=== PATIENT | male | born 1945 | race Caucasian/White ===

== ENCOUNTER 2017-11-09 09:26 | Emergency (ER) | payer MEDICARE ==
[2017-11-09 09:34] VITALS: RESP 18; TEMP 97.8
--- NOTE | 2017-11-09 09:55 | ED ---
General Adult HPI - General Chief complaint: Upper Respiratory Infection Stated complaint: Cough Time Seen by Provider: 11/09/17 09:48 Source: patient, RN notes reviewed Mode of arrival: ambulatory Limitations: no limitations - History of Present Illness Initial comments: Patient 71-year-old male who presents emergency room today with chief complaint of cough congestion over the last 2 days. Patient does admit to a deep cough. He admits to some bodyaches. Admits chills. He does admit to rhinorrhea and drainage with a sore throat. Patient denies any other complaints or symptoms currently. Patient denies any recent shortness of breath, chest pain, back pain , abdominal pain, nausea or vomiting, headaches or visual changes, or any other complaints. - Related Data Home Medications Medication Instructions Recorded Confirmed Bisoprolol-Hctz 10-6.25 mg [Ziac 1 tab PO DAILY 01/01/16 11/09/17 10-6.25 MG] Acetaminophen Tab [Tylenol Tab] 1,000 mg PO Q6HR PRN 11/09/17 11/09/17 Montelukast [Singulair] 10 mg PO HS 11/09/17 11/09/17 Previous Rx's Medication Instructions Recorded Allopurinol [Zyloprim] 300 mg PO DAILY #0 01/08/16 Simvastatin [Zocor] 20 mg PO HS #0 01/08/16 Oseltamivir [Tamiflu] 75 mg PO Q12HR 5 Days cap 11/09/17 Allergies Allergy/AdvReac Type Severity Reaction Status Date / Time aspirin Allergy Swelling Verified 11/09/17 10:15 Sulfa (Sulfonamide Allergy Swelling Verified 11/09/17 10:15 Antibiotics) Review of Systems ROS Statement: Those systems with pertinent positive or pertinent negative responses have been documented in the HPI. ROS Other: All systems not noted in ROS Statement are negative. Past Medical History Past Medical History: Hyperlipidemia, Hypertension, Prostate Disorder Additional Past Medical History / Comment(s): gout History of Any Multi-Drug Resistant Organisms: None Reported Past Surgical History: Appendectomy, Orthopedic Surgery, Prostate Surgery Additional Past Surgical History / Comment(s): partial right knee replacement, broken jaw sx, prostate removal Past Anesthesia/Blood Transfusion Reactions: No Reported Reaction Past Psychological History: No Psychological Hx Reported Smoking Status: Never smoker Past Alcohol Use History: None Reported Past Drug Use History: None Reported - Past Family History Father Family Medical History: Congestive Heart Failure (CHF), Coronary Artery Disease (CAD), Hypertension Mother Family Medical History: Congestive Heart Failure (CHF) Brother(s) Family Medical History: Cancer (Rectal) Sister(s) Family Medical History: No Reported History Daughter(s) Family Medical History: Liver Disease (Crohn's) General Exam - General Exam Comments Initial Comments: General: The patient is awake and alert, in no distress, and does not appear acutely ill. Eye: Pupils are equal, round and reactive to light, extra-ocular movements are intact. No nystagmus. There is normal conjunctiva bilaterally. No signs of icterus. Ears, nose, mouth and throat: There are moist mucous membranes and no oral lesions. Neck: The neck is supple, there is no tenderness or JVD. Cardiovascular: There is a regular rate and rhythm. No murmur, rub or gallop is appreciated. Respiratory: Lungs are clear to auscultation, respirations are non-labored, breath sounds are equal. No wheezes, stridor, rales, or rhonchi. Musculoskeletal: Normal ROM, no tenderness. Strength 5/5. Sensation intact. Pulses equal bilaterally 2+. Neurological: A&O x 3. CN II-XII intact, There are no obvious motor or sensory deficits. Coordination appears grossly intact. Speech is normal. Skin: Skin is warm and dry and no rashes or lesions are noted. Psychiatric: Cooperative, appropriate mood & affect, normal judgment. Limitations: no limitations Course Vital Signs 11/09/17 09:32 Temperature 97.8 F Pulse Rate 70 Respiratory 18 Rate Blood Pressure 107/64 O2 Sat by Pulse 93 L Oximetry Medical Decision Making - Medical Decision Making Patient's chest x-ray is negative for any sign of pneumonia. Patient's influenza A positive. Will be started on Tamiflu the symptoms started just 2 days ago. Patient advised to use Tylenol Motrin as needed for aches pains and fevers. Advised follow-up family doctor return here to the emergency room for any other concerns. Case discussed with physician Dr. Carpenter. - Lab Data Lab Results 11/09/17 Range/Units 09:58 Influenza Type A RNA Detected H (Not Detectd) Influenza Type B (PCR) Not Detected (Not Detectd) Disposition Clinical Impression: Influenza A Disposition: HOME SELF-CARE Condition: Good Instructions: Influenza (ED) Additional Instructions: Please use medication as discussed. Please follow-up with family doctor in the next 2 days of symptoms have not improved. Please return to emergency room if the symptoms increase or worsen or for any other concerns. Prescriptions: Oseltamivir [Tamiflu] 75 mg PO Q12HR 5 Days cap Referrals: Kelli Eaton DO [Primary Care Provider] - 1-2 days Time of Disposition: 10:45
--- NOTE | 2017-11-09 10:20 | XR ---
EXAMINATION TYPE: XR chest 2V DATE OF EXAM: 11/09/2017 HISTORY: cough. REFERENCE: Previous study dated 01/03/2016. FINDINGS: The lungs appear clear. Pleural spaces are clear. Heart size is upper limits of normal. IMPRESSION: BORDERLINE CARDIOMEGALY.
[2017-11-09 11:02] VITALS: BP 117/66; PULSE 68
== END 2017-11-09 11:01 | disposition home or self-care (01) ==
LOC: EC 09:26
DX: J10.1 Influenza due to other identified influenza virus with other respiratory manifestations (principal); I10 Essential (primary) hypertension; Z79.899 Other long term (current) drug therapy; Z88.2 Allergy status to sulfonamides; Z88.6 Allergy status to analgesic agent
CPT/HCPCS: 71046; 87502; 99283

== ENCOUNTER → 2017-11-18 | Outpatient (CLI) | payer MEDICARE ==
--- NOTE | 2017-11-19 12:00 | ECHOF ---
Referral Reason:I15.7 CARDIOMEGALY MEASUREMENTS -------- HEIGHT: 177.8 cm WEIGHT: 99.8 kg BP: IVSd: 1.5 cm (0.6 - 1.1) LVIDd: 4.2 cm (3.9 - 5.3) LVPWd: 1.4 cm (0.6 - 1.1) IVSs: 1.8 cm LVIDs: 3.0 cm LVPWs: 1.8 cm LAESV Index (A-L): 30.51 ml/m Ao Diam: 3.5 cm (2.0 - 3.7) AV Cusp: 2.0 cm (1.5 - 2.6) LA Diam: 3.9 cm (2.7 - 3.8) MV EXCURSION: 19.783 mm (> 18.000) MV EF SLOPE: 162 mm/s (70 - 150) EPSS: 1.0 cm MV E Minesh: 0.56 m/s MV DecT: 289 ms MV A Minesh: 0.35 m/s MV E/A Ratio: 1.58 AR PHT: 516 ms FINDINGS -------- Sinus rhythm. This was a technically adequate study. The left ventricular size is normal. There is moderate concentric left ventricular hypertrophy. O verall left ventricular systolic function is low-normal with, an EF between 50 - 55 %. The right ventricle is normal in size and function. LA is midly dilated 29-33ml/m2. RA appears enlarged. Aortic valve is trileaflet and is mildly thickened. There is wdai-[id number] aortic regurgitation. The aortic pressure half-time by doppler is 516ms. There is no evidence of aortic stenosis. The mitral valve is normal. There is trace to mild mitral regurgitation. Trace tricuspid regurgitation present. Right ventricular systolic pressure is normal at < 35 mmHg. There is no evidence of pulmonary hypertension. The pulmonic valve was not well visualized. The aortic root size is normal. Normal inferior vena cava with normal inspiratory collapse consistent with estimated right atrial pre ssure of 5 mmHg. The pericardium is normal. There is no pericardial effusion. CONCLUSIONS -------- 1. Sinus rhythm. 2. This was a technically adequate study. 3. The left ventricular size is normal. 4. There is moderate concentric left ventricular hypertrophy. 5. LA is midly dilated 29-33ml/m2. 6. RA appears enlarged. 7. Aortic valve is trileaflet and is mildly thickened. 8. There is nhjz-rf-zfnxvxqi aortic regurgitation. 9. The aortic pressure half-time by doppler is 516ms. 10. There is trace to mild mitral regurgitation. 11. Trace tricuspid regurgitation present. 12. Right ventricular systolic pressure is normal at < 35 mmHg. 13. There is no evidence of pulmonary hypertension. 14. The pulmonic valve was not well visualized. 15. The aortic root size is normal. 16. There is no pericardial effusion. CHIEF BANK EXAMINER: [place] RDCS
== END | disposition home or self-care (01) ==
LOC: RADECHMAIN 15:34
PROVIDERS: ATTEND Family Medicine
DX: I08.3 Combined rheumatic disorders of mitral, aortic and tricuspid valves (principal)
CPT/HCPCS: 93306

== ENCOUNTER → 2019-12-23 | Outpatient (CLI) | payer MEDICARE, OTHER ==
--- NOTE | 2019-12-23 17:27 | ECHOS ---
STRESS ECHOCARDIOGRAM LUMASON: @@ Vial INDICATIONS: Other forms of dyspnea. MEDICATIONS: Bisoprolol, Allopurinol, montelukast. BASELINE HEART RATE: 63 BASELINE BLOOD PRESSURE: 128/70 MAXIMUM HEART RATE: 102 MAXIMUM BLOOD PRESSURE: 168/58 85% MPHR: 126 100% MPHR: 148 METS: 10.3 MAXIMUM STAGE REACHED: III TOTAL EXERCISE TIME: 8:55 CLINICAL INFORMATION: Ga Robin is a 74-year-old male who underwent a dobutamine stress echo for evaluation of shortness of breath on exertion. Baseline heart rate 63 beats per minute. Baseline blood pressure 128/70 mmHg. Baseline 12-lead ECG shows sinus rhythm with normal ST segments. Patient exercised on a Carlos protocol for 8 minutes 55 seconds, achieving a peak heart rate of only 102 beats per minute. He had taken his dose of bisoprolol. He was visibly short of breath by peak exercise. Normal blood pressure response. Peak heart rate 102 beats per minute. Occasional PVCs were noted. No ST-segment abnormalities noted. Baseline 2D echo images showed normal LV size and systolic function without segmental wall motion abnormalities. At peak exercise, there was excellent augmentation of overall LV contractility without development of any wall motion abnormalities. At recovery, regional global LV systolic function remained normal. IMPRESSION: Good exercise capacity, but patient was visibly short of breath at peak exercise. No ECG or echocardiographic evidence for ischemia. Occasional PVCs noted and blunted heart rate response to exercise, patient on bisoprolol. BAYRON / CONI: [id number] /
== END | disposition home or self-care (01) ==
LOC: RADNMMAIN 08:53
PROVIDERS: ATTEND Family Medicine
DX: I49.3 Ventricular premature depolarization (principal)
CPT/HCPCS: 93351

== ENCOUNTER 2020-09-24 03:23 | Emergency (ER) | payer MEDICARE, OTHER ==
--- NOTE | 2020-09-24 04:44 | XR ---
EXAM: XR Abdomen, 1 View CLINICAL HISTORY: abdominal pain TECHNIQUE: Frontal supine view of the abdomen/pelvis. COMPARISON: No relevant prior studies available. FINDINGS: Intraperitoneal space: No free air. Gastrointestinal tract: Large amount of stool in the transverse colon. Bones/joints: Kyphoplasty changes are present in the L4 vertebral body. Soft tissues: Postsurgical changes are present in the pelvis. IMPRESSION: Large amount of stool in the transverse colon.
--- NOTE | 2020-09-24 05:52 | ED ---
Abdominal Pain HPI - General Chief Complaint: Abdominal Pain Stated Complaint: abd pain,constipation Time Seen by Provider: 09/24/20 03:51 Source: patient Mode of arrival: ambulatory Limitations: no limitations - History of Present Illness MD Complaint: abdominal pain Onset/Timin -: days(s) Location: diffuse Radiation: none Migration to: no migration Severity: mild Quality: cramping, fullness Consistency: intermittent Improves With: nothing Worsens With: nothing Associated Symptoms: constipation - Related Data Home Medications Medication Instructions Recorded Confirmed Bisoprolol-Hctz 10-6.25 mg [Ziac 1 tab PO DAILY 01/01/16 11/09/17 10-6.25 MG] Acetaminophen Tab [Tylenol Tab] 1,000 mg PO Q6HR PRN 11/09/17 11/09/17 Montelukast [Singulair] 10 mg PO HS 11/09/17 11/09/17 Previous Rx's Medication Instructions Recorded Simvastatin [Zocor] 20 mg PO HS #0 01/08/16 allopurinoL [Zyloprim] 300 mg PO DAILY #0 01/08/16 Oseltamivir [Tamiflu] 75 mg PO Q12HR 5 Days cap 11/09/17 Allergies Allergy/AdvReac Type Severity Reaction Status Date / Time aspirin Allergy Swelling Verified 09/24/20 03:35 Sulfa (Sulfonamide Allergy Swelling Verified 09/24/20 03:35 Antibiotics) Review of Systems ROS Statement: Those systems with pertinent positive or pertinent negative responses have been documented in the HPI. ROS Other: All systems not noted in ROS Statement are negative. Constitutional: Denies: fever, chills Respiratory: Denies: cough, dyspnea Cardiovascular: Denies: chest pain, palpitations, edema Gastrointestinal: Reports: abdominal pain, constipation. Denies: nausea, vomiti ng, diarrhea, hematemesis, melena, hematochezia Genitourinary: Denies: dysuria, hematuria Musculoskeletal: Denies: back pain Skin: Denies: rash Neurological: Denies: headache, weakness Past Medical History Past Medical History: Hyperlipidemia, Hypertension, Prostate Disorder Additional Past Medical History / Comment(s): gout History of Any Multi-Drug Resistant Organisms: None Reported Past Surgical History: Appendectomy, Orthopedic Surgery, Prostate Surgery Additional Past Surgical History / Comment(s): partial right knee replacement, broken jaw sx, prostate removal Past Anesthesia/Blood Transfusion Reactions: No Reported Reaction Past Psychological History: No Psychological Hx Reported Smoking Status: Never smoker Past Alcohol Use History: None Reported Past Drug Use History: None Reported - Past Family History Father Family Medical History: Congestive Heart Failure (CHF), Coronary Artery Disease (CAD), Hypertension Mother Family Medical History: Congestive Heart Failure (CHF) Brother(s) Family Medical History: Cancer (Rectal) Sister(s) Family Medical History: No Reported History Daughter(s) Family Medical History: Liver Disease (Crohn's) General Exam Limitations: no limitations General appearance: alert, in no apparent distress Head exam: Present: atraumatic, normocephalic Eye exam: Present: normal appearance Respiratory exam: Present: normal lung sounds bilaterally. Absent: respiratory distress, wheezes, rales, rhonchi, stridor Cardiovascular Exam: Present: regular rate, normal rhythm, normal heart sounds. Absent: systolic murmur, diastolic murmur, rubs, gallop GI/Abdominal exam: Present: soft, normal bowel sounds. Absent: distended, tenderness, guarding, rebound, rigid, mass, pulsatile mass, hernia Extremities exam: Present: normal inspection, normal capillary refill. Absent: pedal edema, calf tenderness Back exam: Present: normal inspection. Absent: CVA tenderness (R), CVA tenderness (L) Neurological exam: Present: alert Skin exam: Present: warm, dry, intact, normal color. Absent: rash Course Vital Signs 09/24/20 09/24/20 03:31 06:16 Temperature 97.2 F L 98 F Pulse Rate 71 68 Respiratory 18 17 Rate Blood Pressure 143/101 140/87 O2 Sat by Pulse 96 99 Oximetry Disposition Clinical Impression: Constipation Disposition: HOME SELF-CARE Condition: Good Instructions (If sedation given, give patient instructions): Constipation (ED) Is patient prescribed a controlled substance at d/c from ED?: No Referrals: Kelli Eaton DO [Primary Care Provider] - 1-2 days
[2020-09-24] MEDS ORDERED: PEG 3350-NA SULF,BICARB,CL/KCL 4,000 ML BOTTLE PO ONE (06:00)
[2020-09-24 06:18] VITALS: BP 140/87; PULSE 68; RESP 17; TEMP 98
== END 2020-09-24 06:18 | disposition home or self-care (01) ==
LOC: EC 03:23
DX: K59.00 Constipation, unspecified (principal); I10 Essential (primary) hypertension; Z88.6 Allergy status to analgesic agent; Z88.2 Allergy status to sulfonamides; Z79.899 Other long term (current) drug therapy; Z96.651 Presence of right artificial knee joint
CPT/HCPCS: 74018; 99284

== ENCOUNTER 2021-07-13 13:30 | Observation (INO) | payer MEDICARE, OTHER ==
[2021-07-13 14:27] LABS: Basophils % (A) 0 %; Eosinophils # (A) 0.1 k/uL (0-0.7); Eosinophils % (A) 2 %; HCT 43.8 % (39.0-53.0); HGB 14.7 gm/dL (13.0-17.5); Lymphocytes # (A) 1.7 k/uL (1.0-4.8); Lymphocytes % (A) 23 %; MCH 32.7 pg (25.0-35.0); MCHC 33.6 g/dL (31.0-37.0); MCV 97.5 fL (80.0-100.0); Monocytes # (A) 0.5 k/uL (0-1.0); Monocytes % (A) 6 %; Neutrophils # (A) 4.9 k/uL (1.3-7.7); Neutrophils % (A) 66 %; Platelet Count 247 k/uL (150-450); RBC 4.49 m/uL (4.30-5.90); RDW 13.3 % (11.5-15.5); WBC 7.4 k/uL (3.8-10.6)
--- NOTE | 2021-07-13 14:36 | ED ---
Chest Pain HPI - General Chief Complaint: Chest Pain Stated Complaint: SOB,Left arm pain,Fatigue Time Seen by Provider: 07/13/21 13:48 Source: patient, family, RN notes reviewed Mode of arrival: wheelchair Limitations: no limitations - History of Present Illness Initial Comments: 75-year-old male with no prior history of heart or lung disease he is aware of he does have a history of hypertension and hyperlipidemia who presents with complaints of intermittent episodes of retrosternal chest pressure in the left side 1-2/10 severity when it comes on some radiation to the left arm he's been having exertional dyspnea recently worse yesterday than today he's had some sweats. Cough fevers chills or other symptoms reported. At this time he is asymptomatic MD Complaint: chest pain, other - Related Data Home Medications Medication Instructions Recorded Confirmed Bisoprolol-Hctz 10-6.25 mg [Ziac 1 tab PO DAILY 01/01/16 07/13/21 10-6.25 MG] ALPRAZolam [Xanax] 0.25 mg PO TID PRN 07/13/21 07/13/21 Famotidine [Pepcid] 40 mg PO AC-SUPPER 07/13/21 07/13/21 Sertraline [Zoloft] 50 mg PO DAILY 07/13/21 07/13/21 Previous Rx's Medication Instructions Recorded allopurinoL [Zyloprim] 300 mg PO DAILY #0 01/08/16 Allergies Allergy/AdvReac Type Severity Reaction Status Date / Time aspirin Allergy Swelling Verified 07/13/21 15:09 Sulfa (Sulfonamide Allergy Swelling Verified 07/13/21 15:09 Antibiotics) Maqwsov-[id number]-[id number] Reductase AdvReac leg cramps Verified 07/13/21 15:09 Inhibitor Review of Systems ROS Statement: Those systems with pertinent positive or pertinent negative responses have been documented in the HPI. ROS Other: All systems not noted in ROS Statement are negative. EKG Findings - EKG Results: EKG: interpreted by ES, sinus rhythm (Sinus bradycardia rate 59. Interval 160 QRS yazidi 92 QT since QTC 412/407 to QA changes) Past Medical History Past Medical History: Hyperlipidemia, Hypertension, Prostate Disorder Additional Past Medical History / Comment(s): gout History of Any Multi-Drug Resistant Organisms: None Reported Past Surgical History: Appendectomy, Orthopedic Surgery, Prostate Surgery Additional Past Surgical History / Comment(s): partial right knee replacement, broken jaw sx, prostate removal Past Anesthesia/Blood Transfusion Reactions: No Reported Reaction Past Psychological History: No Psychological Hx Reported Smoking Status: Never smoker Past Alcohol Use History: None Reported Past Drug Use History: None Reported - Past Family History Father Family Medical History: Congestive Heart Failure (CHF), Coronary Artery Disease (CAD), Hypertension Mother Family Medical History: Congestive Heart Failure (CHF) Brother(s) Family Medical History: Cancer (Rectal) Sister(s) Family Medical History: No Reported History Daughter(s) Family Medical History: Liver Disease (Crohn's) General Exam - General Exam Comments Initial Comments: This is a well-developed well-nourished awake alert oriented 3 male Limitations: no limitations General appearance: alert, in no apparent distress Head exam: Present: atraumatic, normocephalic, normal inspection Eye exam: Present: normal appearance, PERRL, EOMI. Absent: scleral icterus, conjunctival injection, periorbital swelling ENT exam: Present: normal exam, mucous membranes moist Neck exam: Present: normal inspection, full ROM, other (Genitourinary bruits). Absent: tenderness, meningismus, lymphadenopathy Respiratory exam: Present: normal lung sounds bilaterally. Absent: respiratory distress, wheezes, rales, rhonchi, stridor Cardiovascular Exam: Present: regular rate, normal rhythm, normal heart sounds. Absent: systolic murmur, diastolic murmur, rubs, gallop, clicks GI/Abdominal exam: Present: soft, normal bowel sounds. Absent: distended, tenderness, guarding, rebound, rigid, bruit, pulsatile mass Extremities exam: Present: normal inspection, full ROM, normal capillary refill. Absent: tenderness, pedal edema, joint swelling, calf tenderness Back exam: Present: normal inspection Neurological exam: Present: alert, oriented X3, CN II-XII intact Psychiatric exam: Present: normal affect, normal mood Skin exam: Present: warm, dry, intact, normal color. Absent: rash Course Vital Signs 07/13/21 13:36 Temperature 98.2 F Pulse Rate 63 Respiratory 18 Rate Blood Pressure 140/76 O2 Sat by Pulse 96 Oximetry Chest Pain MDM - MDM Imaging reviewed no acute findings. I did discuss case with patient family as well as with Dr. Capps who did come to see the patient. Patient will be ad mitted with cardiology consultation no further symptoms at this time Disposition Clinical Impression: Unstable angina pectoris, Chest pain Disposition: ADMITTED IP TO THIS HOSP Condition: Stable Referrals: Kelli Eaton DO [Primary Care Provider] - 1-2 days
[2021-07-13 14:37] LABS: Albumin 3.9 g/dL (3.5-5.0); Calcium 9.2 mg/dL (8.4-10.2); Magnesium 1.9 mg/dL (1.6-2.3); Potassium 4.3 mmol/L (3.5-5.1); Total Bilirubin 0.7 mg/dL (0.2-1.3); Total Protein 6.8 g/dL (6.3-8.2)
[2021-07-13 14:40] LABS: Partial Thromboplastin Time 24.3 sec (22.0-30.0); Prothrombin Time 10.9 sec (9.0-12.0)
--- NOTE | 2021-07-13 14:58 | XR ---
EXAMINATION TYPE: XR chest 2V DATE OF EXAM: 07/13/2021 COMPARISON: 11/09/2017 INDICATION: Chest pain TECHNIQUE: Frontal and lateral views of the chest are obtained. FINDINGS: The heart size is normal. The pulmonary vasculature is normal. The lungs are clear. IMPRESSION: 1. No acute pulmonary process.
[2021-07-13] MEDS ORDERED: HEPARIN SODIUM 1,000 UN/ML (10ML VL) IV ONE (15:27)
[2021-07-13] MEDS ORDERED: NITROGLYCERIN SL TABS 0.4 MG TAB SUBLINGUAL PRN (15:27)
[2021-07-13] MEDS ORDERED: ALPRAZolam 0.25 MG TAB PO PRN (15:29)
[2021-07-13] MEDS: HEPARIN SOD,PORK IN 0.45% NACL 25,000 UNIT in 0.45% NACL 1 250ML.BAG IV SCH (16:20)
--- NOTE | 2021-07-13 16:21 | P.HPIM ---
History of Present Illness H&P Date: 07/13/21 Chief Complaint: Chest pain 75 years old male with past medical history of hypertension, hyperlipidemia, gout, anxiety, history of compression fractures in the back status post kyphoplasty comes in with worsening shortness of breath for the past few months associated with chest pain for the past few weeks. Patient also complains of significant weakness and shortness of breath on exertion when he even does minimal distance. He complained about his chest pain to his and decided to get an appointment with cardiology. Cardiology office recommended going to the ER due to patient's symptoms. Patient also complains of cough that has been going on for the past few months but improved with the use of Pepcid. Patient denies any history of stress test. He does complain of significant proximal thigh pain and weakness. Vitals are reviewed patient temp of 98.2 pulse 63 respiratory rate of 18 blood pressure 140/76.labs are suggestive WBC 7.4 hemoglobin 14.7 BUN 24 creatinine 1.15 glucose 116 2. 1 negative proBNP 116 AST ALT normal. EKG suggestive of sinus bradycardia and no ST or T-wave changes noted. Echocardiogram ordered troponin 3 ordered. Cardiology consult ROS Constitutional: Denies chills, Denies fever, endorses lethargic, decreased appetite and increased weakness Eyes: denies decreased vision, denies diplopia, denies discharge, denies pain Ears: deny: decreased hearing Ears, nose, mouth and throat: Denies dental pain, Denies headache, Denies nasal discharge, Denies nose pain Cardiovascular: Endorses chest pressure endorses decreased exercise tolerance, Denies edema, Denies high blood pressure, Denies irregular heart beat, Denies palpitations, Denies paroxysmal nocturnal dyspnea, Denies rapid heart beat, endorses shortness of breath Respiratory: Denies congestion, endorses cough improved with Pepcid, Denies cough with sputum, endorses dyspnea, Denies home oxygen, Denies wheezing Gastrointestinal: Denies abdominal pain, Denies change in bowel habits, Denies coffee ground emesis, Denies early satiety, Denies excessive gas, Denies heartburn, Denies hematemesis, Denies hematochezia, Denies loss of appetite, Denies nausea, Denies vomiting Genitourinary: Denies dysuria, Denies flank pain, Denies kidney stones, Denies menorrhagia, Denies urgency, Denies urinary frequency Musculoskeletal: Denies gait dysfunction, endorses limitation of motion, Denies morning stiffness, Denies muscle cramps Integumentary: Denies rash, Denies wounds, Denies brittle nails, Denies change in hair/nails, Denies darkening of skin Neurological: Denies balance difficulties, Denies change in speech, Denies double vision, Denies gait dysfunction, Denies loss of vision, Denies motor disturbance, Denies numbness, Denies paralysis, Denies paresthesias, Denies seizures Psychiatric: Denies anxiety, Denies depression Endocrine: Denies excessive sweating, Denies excessive thirst, Denies high blood sugars, Denies palpitations Hematologic/Lymphatic: Denies easy bruising, Denies lymphadenopathy Social history Nonsmoker but does have significant smoke exposure as he worked in [employer] and was exposed to passive smoking nondrinker no use of oxygen. No h istory of sleep apnea Family history Father at age of 73 from coronary artery disease Mother at the age of 83 from congestive heart failure Brother at the age of 65 from colon cancer Brother had a stroke at the age of 76 Sister has multiple medical problems including hypertension and diabetes Sr. is healthy Brother is healthy Physical exam - Constitutional General appearance: cooperative, no acute distress, obese - EENT Eyes: anicteric sclerae, PERRLA, normal appearance ENT: hearing grossly normal - Neck Neck: no lymphadenopathy, normal ROM, no other, no rigidity, no stridor, no thyromegaly - Respiratory Respiratory: bilateral: CTA, negative: diminished, dullness, rales, rhonchi - Cardiovascular Rhythm: regular Heart sounds: normal: S1, S2 Abnormal Heart Sounds: no systolic murmur, no diastolic murmur, no rub, no S3 Gallop, no S4 Gallop, no click, no other - Gastrointestinal General gastrointestinal: normal bowel sounds, soft nontender - Integumentary Integumentary: no rash - Neurologic Neurologic: CNII-XII intact - Musculoskeletal Musculoskeletal: gait normal, strength equal bilaterally - Psychiatric Psychiatric: A&O x's 3, appropriate affect Assessment and plan #1 acute substernal chest pain suggestive of cardiac etiology. Echocardiogram ordered troponin X3 3 ordered. Cardiology consulted. Continue heparin drip nothing by mouth after midnight. #2 hypertension continue bisoprolol hydrochlorothiazide by mouth daily #3 history of anxiety continue Xanax 0.25 by mouth 3 times a day continue Zoloft 50 mg daily #4 history of gout continue allopurinol 300 mg daily #5 chronic cough secondary to GERD improved with Pepcid 40 once a day #6 history of compression fractures status post kyphoplasty #7 proximal thigh pain and weakness Patient need outpatient workup including a repeat MRI to rule out degenerative disc disease versus compression disc. Would benefit from physical therapy as outpatient. Patient does continue Crestor 2 months ago due to increased pain in his thighs #8 hyperlipidemia currently off Crestor due to worsening type pain #9 DVT prophylaxis with heparin drip #10 GI prophylaxis with Pepcid 40 before meals supper #11 CODE STATUS DO NOT RESUSCITATE #12 disposition patient need 1-2 inpatient nights for stabilization. Past Medical History Past Medical History: Hyperlipidemia, Hypertension, Prostate Disorder Additional Past Medical History / Comment(s): gout History of Any Multi-Drug Resistant Organisms: None Reported Past Surgical History: Appendectomy, Orthopedic Surgery, Prostate Surgery Additional Past Surgical History / Comment(s): partial right knee replacement, broken jaw sx, prostate removal Past Anesthesia/Blood Transfusion Reactions: No Reported Reaction Past Psychological History: No Psychological Hx Reported Smoking Status: Never smoker Past Alcohol Use History: None Reported Past Drug Use History: None Reported - Past Family History Father Family Medical History: Congestive Heart Failure (CHF), Coronary Artery Disease (CAD), Hypertension Mother Family Medical History: Congestive Heart Failure (CHF) Brother(s) Family Medical History: Cancer (Rectal) Sister(s) Family Medical History: No Reported History Daughter(s) Family Medical History: Liver Disease (Crohn's) Medications and Allergies Home Medications Medication Instructions Recorded Confirmed Type Bisoprolol-Hctz 10-6.25 mg [Ziac 1 tab PO DAILY 01/01/16 07/13/21 History 10-6.25 MG] allopurinoL [Zyloprim] 300 mg PO DAILY #0 01/08/16 07/13/21 Rx ALPRAZolam [Xanax] 0.25 mg PO TID PRN 07/13/21 07/13/21 History Famotidine [Pepcid] 40 mg PO AC-SUPPER 07/13/21 07/13/21 History Sertraline [Zoloft] 50 mg PO DAILY 07/13/21 07/13/21 History Allergies Allergy/AdvReac Type Severity Reaction Status Date / Time aspirin Allergy Swelling Verified 07/13/21 15:09 Sulfa (Sulfonamide Allergy Swelling Verified 07/13/21 15:09 Antibiotics) Ugrzasc-Jyo-Srq Reductase AdvReac leg cramps Verified 07/13/21 15:09 Inhibitor Physical Exam Vitals: Vital Signs Temp Pulse Resp BP Pulse Ox 07/13/21 13:36 98.2 F 63 18 140/76 96 Intake and Output 07/13/21 07/13/21 07/13/21 06:59 14:59 22:59 Other: Weight 105.687 kg Results CBC & Chem 7: 07/13/21 14:08 07/13/21 14:08 Labs: Abnormal Lab Results - Last 24 Hours (Table) 07/13/21 Range/Units 14:08 BUN 24 H (9-20) mg/dL Glucose 116 H (74-99) mg/dL
[2021-07-13] MEDS: SODIUM CHLORIDE 0.9% 1,000 ML IV SCH (16:22)
[2021-07-13] MEDS: FAMOTIDINE 20 MG TAB PO SCH (20:09)
[2021-07-13] MEDS ORDERED: HEPARIN SODIUM 1,000 UN/ML (10ML VL) IV PRN (23:34)
[2021-07-14] MEDS: BISOPROLOL-HCTZ 10-6.25 MG 1 EACH TAB PO SCH (08:06)
[2021-07-14] MEDS: SERTRALINE 50 MG TAB PO SCH (08:07)
[2021-07-14] MEDS: allopurinoL 300 MG TAB PO SCH (08:07)
--- NOTE | 2021-07-14 11:30 | P.PN ---
Subjective Progress Note Date: 07/14/21 Principal diagnosis: chest pain and angina, hypertension, chronic cough, chronic back pain, Chief Complaint: Chest pain 75 years old male with past medical history of hypertension, hyperlipidemia, gout, anxiety, history of compression fractures in the back status post kyphoplasty comes in with worsening shortness of breath for the past few months associated with chest pain for the past few weeks. Patient also complains of significant weakness and shortness of breath on exertion when he even does minimal distance. He complained about his chest pain to his and decided to get an appointment with cardiology. Cardiology office recommended going to the ER due to patient's symptoms. Patient also complains of cough that has been going on for the past few months but improved with the use of Pepcid. Patient denies any history of stress test. He does complain of significant proximal thigh pain and weakness. Vitals are reviewed patient temp of 98.2 pulse 63 respiratory rate of 18 blood pressure 140/76.labs are suggestive WBC 7 .4 hemoglobin 14.7 BUN 24 creatinine 1.15 glucose 116 2. 1 negative proBNP 116 AST ALT normal. EKG suggestive of sinus bradycardia and no ST or T-wave changes noted. Echocardiogram ordered troponin 3 ordered. Cardiology consult ROS Constitutional: Denies chills, Denies fever, endorses lethargic, decreased appetite and increased weakness Eyes: denies decreased vision, denies diplopia, denies discharge, denies pain Ears: deny: decreased hearing Ears, nose, mouth and throat: Denies dental pain, Denies headache, Denies nasal discharge, Denies nose pain Cardiovascular: Endorses chest pressure endorses decreased exercise tolerance, Denies edema, Denies high blood pressure, Denies irregular heart beat, Denies palpitations, Denies paroxysmal nocturnal dyspnea, Denies rapid heart beat, endorses shortness of breath Respiratory: Denies congestion, endorses cough improved with Pepcid, Denies cough with sputum, endorses dyspnea, Denies home oxygen, Denies wheezing Gastrointestinal: Denies abdominal pain, Denies change in bowel habits, Denies coffee ground emesis, Denies early satiety, Denies excessive gas, Denies heartburn, Denies hematemesis, Denies hematochezia, Denies loss of appetite, Denies nausea, Denies vomiting Genitourinary: Denies dysuria, Denies flank pain, Denies kidney stones, Denies menorrhagia, Denies urgency, Denies urinary frequency Musculoskeletal: Denies gait dysfunction, endorses limitation of motion, Denies morning stiffness, Denies muscle cramps Integumentary: Denies rash, Denies wounds, Denies brittle nails, Denies change in hair/nails, Denies darkening of skin Neurological: Denies balance difficulties, Denies change in speech, Denies double vision, Denies gait dysfunction, Denies loss of vision, Denies motor disturbance, Denies numbness, Denies paralysis, Denies paresthesias, Denies seizures Psychiatric: Denies anxiety, Denies depression Endocrine: Denies excessive sweating, Denies excessive thirst, Denies high blood sugars, Denies palpitations Hematologic/Lymphatic: Denies easy bruising, Denies lymphadenopathy Social history Nonsmoker but does have significant smoke exposure as he worked in [employer] and was exposed to passive smoking nondrinker no use of oxygen. No history of sleep apnea Family history Father at age of 73 from coronary artery disease Mother at the age of 83 from congestive heart failure Brother at the age of 65 from colon cancer Brother had a stroke at the age of 76 Sister has multiple medical problems including hypertension and diabetes Sr. is healthy Brother is healthy Physical exam - Constitutional General appearance: cooperative, no acute distress, obese - EENT Eyes: anicteric sclerae, PERRLA, normal appearance ENT: hearing grossly normal - Neck Neck: no lymphadenopathy, normal ROM, no other, no rigidity, no stridor, no thyromegaly - Respiratory Respiratory: bilateral: CTA, negative: diminished, dullness, rales, rhonchi - Cardiovascular Rhythm: regular Heart sounds: normal: S1, S2 Abnormal Heart Sounds: no systolic murmur, no diastolic murmur, no rub, no S3 Gallop, no S4 Gallop, no click, no other - Gastrointestinal General gastrointestinal: normal bowel sounds, soft nontender - Integumentary Integumentary: no rash - Neurologic Neurologic: CNII-XII intact - Musculoskeletal Musculoskeletal: gait normal, strength equal bilaterally - Psychiatric Psychiatric: A&O x's 3, appropriate affect Assessment and plan #1 acute substernal chest pain suggestive of cardiac etiology. Echocardiogram ordered troponin X3 3 ordered. Cardiology consulted. Continue heparin drip nothing by mouth after midnight.awaiting to see cardiology today, echocardiogram was performed results still pending. #2 hypertension continue bisoprolol hydrochlorothiazide by mouth dailyin the blood pressure is well controlled. #3 history of anxiety continue Xanax 0.25 by mouth 3 times a day continue Zoloft 50 mg daily #4 history of gout continue allopurinol 300 mg daily #5 chronic cough secondary to GERD improved with Pepcid 40 once a day #6 history of compression fractures status post kyphoplasty #7 proximal thigh pain and weakness Patient need outpatient workup including a repeat MRI to rule out degenerative disc disease versus compression disc. Would benefit from physical therapy as outpatient. Patient does continue Crestor 2 months ago due to increased pain in his thighs #8 hyperlipidemia currently off Crestor due to worsening type painmostly myalgia which patient should start back on statin as soon as clear he might need an benefit from lower dose specially with his risk of atherosclerotic heart disease. #9 DVT prophylaxis with heparin drip #10 GI prophylaxis with Pepcid 40 before meals supper Objective - Vital Signs Vital signs: Vital Signs Temp 97.2 F L 07/14/21 07:50 Pulse 57 L 07/14/21 07:50 Resp 16 07/14/21 07:50 BP 138/76 07/14/21 07:50 Pulse Ox 96 07/14/21 07:50 Intake & Output 07/13/21 07/14/21 07/14/21 18:59 06:59 18:59 Intake Total 72 Balance 72 Weight 105.687 kg 105.687 kg Intake: Intake, IV Titration 72 Amount Heparin Sod,Pork in 0.45% 72 NaCl 25,000 unit In 0.45 % NaCl 1 250ml.bag @ 9. 462 UNITS/KG/HR 10 mls/hr IV .Q24H DAVDI Rx#: [id number] Other: Voiding Method Toilet # Voids 2 - Labs CBC & Chem 7: 07/13/21 14:08 07/13/21 14:08 Labs: Abnormal Lab Results - Last 24 Hours (Table) 07/13/21 07/13/21 07/14/21 Range/Units 14:08 22:53 07:06 APTT 40.2 H 61.8 H (22.0-30.0) sec BUN 24 H (9-20) mg/dL Glucose 116 H (74-99) mg/dL
--- NOTE | 2021-07-14 12:32 | ECHOF ---
Referral Reason:chest pain MEASUREMENTS -------- HEIGHT: 177.8 cm WEIGHT: 105.7 kg BP: 115/67 RVIDd: 3.0 cm (< 3.3) IVSd: 1.2 cm (0.6 - 1.1) LVIDd: 4.2 cm (3.9 - 5.3) LVPWd: 1.1 cm (0.6 - 1.1) IVSs: 1.9 cm LVIDs: 3.0 cm LVPWs: 1.6 cm LA Diam: 2.8 cm (2.7 - 3.8) LAESV Index (A-L): 27.64 ml/m Ao Diam: 3.6 cm (2.0 - 3.7) AV Cusp: 2.3 cm (1.5 - 2.6) MV EXCURSION: 14.317 mm (> 18.000) MV EF SLOPE: 35 mm/s (70 - 150) EPSS: 1.6 cm MV E Minesh: 0.50 m/s MV DecT: 257 ms MV A Minesh: 0.62 m/s MV E/A Ratio: 0.81 AR PHT: 851 ms FINDINGS -------- Sinus rhythm. This was a technically good study. The left ventricular size is normal. There is borderline concentric left ventricular hypertrophy. Overall left ventricular systolic function is normal with, an EF between 60 - 65 %. The right ventricle is normal in size. Normal LA size by volume 22+/-6 ml/m2. The right atrium is normal in size. Lipomatous Hypertrophy of the atrial septum is present There is [id number]-fmehtraw aortic regurgitation. The mitral valve is normal. The tricuspid valve appears structurally normal. Unable to estimate RVSP due to inadequate TR jet s pectral doppler profile. Trace/mild (physiologic) pulmonic regurgitation. The aortic root size is normal. Normal inferior vena cava with normal inspiratory collapse consistent with estimated right atrial pre ssure of 5 mmHg. There is no pericardial effusion. CONCLUSIONS -------- 1. The left ventricular size is normal. 2. There is borderline concentric left ventricular hypertrophy. 3. Overall left ventricular systolic function is normal with, an EF between 60 - 65 %. 4. Lipomatous Hypertrophy of the atrial septum is present 5. There is [id number]-[id number] aortic regurgitation. 6. Trace/mild (physiologic) pulmonic regurgitation. 7. There is no pericardial effusion. [employer]: Carmen Hernandez RDCS
[2021-07-14 13:14] LABS: Chol/HDL Ratio 4.8; LDL Cholesterol,Calculated 170.2 mg/dL (0.0-131.0); VLDL Calculation 23.8 mg/dL (5.00-40.00)
[2021-07-14] MEDS: HEPARIN SOD,PORK IN 0.45% NACL 25,000 UNIT in 0.45% NACL 1 250ML.BAG IV SCH (16:26)
[2021-07-14] MEDS: SODIUM CHLORIDE 0.9% 1,000 ML IV SCH (16:42)
[2021-07-14] MEDS: FAMOTIDINE 20 MG TAB PO SCH (17:06)
[2021-07-14] MEDS ORDERED: ALPRAZolam 0.25 MG TAB PO PRN (22:38)
[2021-07-14] MEDS ORDERED: ASPIRIN 325 MG TAB PO STA (22:38)
[2021-07-14] MEDS ORDERED: ALPRAZolam 0.5 MG TAB PO PRN (22:38)
[2021-07-14] MEDS ORDERED: SODIUM CHLORIDE 0.9% 1,000 ML in EMPTY BAG 1 BAG IV ONE (22:38)
[2021-07-14] MEDS ORDERED: NITROGLYCERIN SL TABS 0.4 MG TAB SUBLINGUAL PRN (22:38)
--- NOTE | 2021-07-14 22:38 | P.CRDCN ---
History of Present Illness History of present illness: HISTORY OF PRESENTING ILLNESS Patient is a pleasant 75-year-old male with a history of hypertension, statin intolerance, hyperlipidemia, gout, anxiety, compression fractures in the past and asthma who presents secondary to increasing episodes of dyspnea on exertion as well as chest pain. 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 More recently in the last 2-3 weeks he has noted episodes of some mild chest pressure which is normally worse with exertion and improved with rest. He then had an episode yesterday where this occurred at rest and therefore decided from the emergency department. He admits to some mild diaphoresis with this episode as well. He denies any recent fevers, chills. He has not seen a career professional in the past. He also has been having some thigh pain which is worse with exertion and improved with rest. This is somewhat separate than the statin intolerance myopathies which she had approximate 6 months ago in which improved with stopping 2 different statins. Blood work shows white blood cell count 7.4, hemoglobin 14.7, platelets 247, d- dimer 0.5, troponin less than 0.0123, proBNP 116, total cholesterol 245, LDL 170, HDL 51, COVID not detected echo showed EF 60-65%, lipomatous hypertrophy of the atrial septum, mild to moderate aortic regurgitation. EKG shows sinus bradycardia without significant ST or T-wave abnormalities. REVIEW OF SYSTEMS At the time of my exam: CONSTITUTIONAL: Denies fever or chills. CARDIOVASCULAR: +chest pain, +shortness of breath, no orthopnea, PND or palpitations. RESPIRATORY: Denies cough. GASTROINTESTINAL: Denies abdominal pain, diarrhea, constipation, nausea or vomiting. MUSCULOSKELETAL: Denies myalgias. NEUROLOGIC: Denies numbness, tingling or weakness. ENDOCRINE: Denies fatigue, weight change, polydipsia or polyurina. GENITOURINARY: Denies burning, hematuria or urgency with micturation. HEMATOLOGIC: Denies history of anemia or bleeding. PHYSICAL EXAMINATION Vital signs reviewed. CONSTITUTIONAL: No apparent distress. HEENT: Head is normocephalic. Pupils are equal, round. Sclerae anicteric. Mucous membranes of the mouth are moist. No JVD. No carotid bruit. CHEST EXAMINATION: Lungs are clear to auscultation. No chest wall tenderness is noted on palpation or with deep breathing. HEART EXAMINATION: Regular rate and rhythm. S1, S2 heard. No murmurs, gallops or rub. ABDOMEN: Soft, nontender. Positive bowel sounds. EXTREMITIES: 2+ peripheral pulses, no lower extremity edema and no calf te nderness. NEUROLOGIC EXAMINATION: Patient is awake, alert and oriented x3. ASSESSMENT 1. Chest pain and dyspnea on exertion worse over the last 2 months and occurring at rest concerning and consistent with unstable angina 2. Mild to moderate aortic regurgitation 3. Hypertension 4. Hyperlipidemia 5. Statin intolerance 6. Thigh pain worse with exertion improved with rest concerning for piter ication PLAN Patient's symptoms are consistent with angina and concerning for unstable angina. Therefore we will treat as acute coronary syndrome and continue with aspirin as well as heparin drip. Discussed possible stress testing versus heart catheterization and patient would like heart catheterization for definitive diagnosis. Ideally statin however he does have significant statin intolerances. We will add Zetia however would likely need PCS K-9 inhibitor. Possible heart catheterization 07/15 or 07/16. Past Medical History Past Medical History: Hyperlipidemia, Hypertension, Pneumonia, Prostate Disorder Additional Past Medical History / Comment(s): gout, prostate ca with sx 2007 History of Any Multi-Drug Resistant Organisms: None Reported Past Surgical History: Appendectomy, Orthopedic Surgery, Prostate Surgery Additional Past Surgical History / Comment(s): partial right knee replacement, broken jaw sx, prostate removal, compression fx in back with sx Past Anesthesia/Blood Transfusion Reactions: No Reported Reaction Past Psychological History: Anxiety, Depression Smoking Status: Never smoker Past Alcohol Use History: None Reported Additional Past Alcohol Use History / Comment(s): Patient has been a lifelong nonsmoker. He denies any medical marijuana, marijuana, street drug, alcohol use. He lives at home with his and dog. He denies any service. They have traveled in the past but most recently was in 2003 to [place]. 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 Past Drug Use History: None Reported - Past Family History Father Family Medical History: Congestive Heart Failure (CHF), Coronary Artery Disease (CAD), Hypertension Mother Family Medical History: Congestive Heart Failure (CHF) Brother(s) Family Medical History: Cancer Sister(s) Family Medical History: No Reported History Daughter(s) Family Medical History: Liver Disease Medications and Allergies Home Medications Medication Instructions Recorded Confirmed Type Bisoprolol-Hctz 10-6.25 mg [Ziac 1 tab PO DAILY 01/01/16 07/13/21 History 10-6.25 MG] allopurinoL [Zyloprim] 300 mg PO DAILY #0 01/08/16 07/13/21 Rx ALPRAZolam [Xanax] 0.25 mg PO TID PRN 07/13/21 07/13/21 History Famotidine [Pepcid] 40 mg PO AC-SUPPER 07/13/21 07/13/21 History Sertraline [Zoloft] 50 mg PO DAILY 07/13/21 07/13/21 History Allergies Allergy/AdvReac Type Severity Reaction Status Date / Time aspirin Allergy Swelling Verified 07/13/21 15:09 Sulfa (Sulfonamide Allergy Swelling Verified 07/13/21 15:09 Antibiotics) [id number] Reductase AdvReac leg cramps Verified 07/13/21 15:09 Inhibitor Physical Exam Vitals: Vital Signs Temp Pulse Resp BP Pulse Ox 07/14/21 19:25 98.4 F 58 L 16 129/74 96 07/14/21 15:27 97 07/14/21 14:27 98.8 F 63 16 122/69 97 07/14/21 07:50 97.2 F L 57 L 16 138/76 96 07/14/21 01:20 98.0 F 52 L 16 115/67 96 Intake and Output 07/14/21 07/14/21 07/14/21 06:59 14:59 22:59 Intake Total 72 478 Balance 72 478 Intake: Intake, IV Titration 72 178 Amount Heparin Sod,Pork in 0.45% 72 178 NaCl 25,000 unit In 0.45 % NaCl 1 250ml.bag @ 9. 462 UNITS/KG/HR 10 mls/hr IV .Q24H [facility] Rx#: [id number] Oral 300 Other: Voiding Method Toilet # Voids 2 2 # Bowel Movements 0 Results 07/13/21 14:08 07/13/21 14:08 Cardiac Enzymes 07/13/21 07/14/21 Range/Units 22:53 07:06 Troponin I <0.012 <0.012 (0.000-0.034) ng/mL Coagulation 07/13/21 07/14/21 Range/Units 22:53 07:06 APTT 40.2 H 61.8 H (22.0-30.0) sec Lipids 07/14/21 Range/Units 07:06 Triglycerides 119.0 (0.0-149.0) mg/dL Cholesterol 245 H (0-200) mg/dL HDL Cholesterol 51.0 (40.0-60.0) mg/dL Cholesterol/HDL Ratio 4.80 Current Medications Generic Name Dose Route Start Last Admin Trade Name Freq PRN Reason Stop Dose Admin Allopurinol 300 mg 07/14/21 09:00 07/14/21 08:07 Allopurinol 300 Mg Tab PO 300 mg DAILY DAVID Administration Alprazolam 0.25 mg 07/13/21 15:29 Alprazolam 0.25 Mg Tab PO TID PRN Anxiety Bisoprolol Fumarate 1 each 07/14/21 09:00 07/14/21 08:06 Bisoprolol-Hctz 10-6.25 Mg 1 Each Tab PO 1 each DAILY DAVID Administration Famotidine 40 mg 07/13/21 17:30 07/14/21 17:06 Famotidine 20 Mg Tab PO 40 mg AC-SUPPER DAVID Administration Heparin Sodium (Porcine) 0 unit 07/13/21 23:34 07/14/21 00:07 Heparin Sodium 1,000 Un/Ml (10ml Vl) IV 2,640 unit PER PROTOCOL PRN Administration Low PTT Protocol Sodium Chloride 1,000 mls @ 20 mls/hr 07/13/21 15:30 07/14/21 16:42 Saline 0.9% IV 20 mls/hr .Q24H DAVID Administration Heparin Sodium/Sodium Chloride 250 mls @ 10 mls/hr 07/13/21 15:30 07/14/21 16:26 25,000 unit/ Sodium Chloride IV 11.462 units/kg/hr .Q24H DAVID 12.114 mls/hr Administration Protocol 9.462 UNITS/KG/HR Nitroglycerin 0.4 mg 07/13/21 15:27 Nitroglycerin Sl Tabs 0.4 Mg Tab SUBLINGUAL Q5M PRN Chest Pain Sertraline HCl 50 mg 07/14/21 09:00 07/14/21 08:07 Sertraline 50 Mg Tab PO 50 mg DAILY DAVID Administration Intake and Output 07/14/21 07/14/21 07/14/21 06:59 14:59 22:59 Intake Total 72 478 Balance 72 478 Intake: Intake, IV Titration 72 178 Amount Heparin Sod,Pork in 0.45% 72 178 NaCl 25,000 unit In 0.45 % NaCl 1 250ml.bag @ 9. 462 UNITS/KG/HR 10 mls/hr IV .Q24H [facility] Rx#: [id number] Oral 300 Other: Voiding Method Toilet # Voids 2 2 # Bowel Movements 0 07/13/21 14:08 07/13/21 14:08
[2021-07-15] MEDS ORDERED: HEPARIN SODIUM,PORCINE 2,500 UNIT in SODIUM CHLORIDE 0.9% 250 ML IRRIGATION PRN (07:00)
[2021-07-15] MEDS ORDERED: HEPARIN SODIUM,PORCINE 10,000 UNIT in SODIUM CHLORIDE 0.9% 1,000 ML IRRIGATION PRN (07:00)
[2021-07-15 07:58] VITALS: RESP 16; TEMP 98.4
[2021-07-15] MEDS: allopurinoL 300 MG TAB PO SCH (08:08)
[2021-07-15] MEDS: SERTRALINE 50 MG TAB PO SCH (08:08)
[2021-07-15] MEDS: BISOPROLOL-HCTZ 10-6.25 MG 1 EACH TAB PO SCH (08:08)
--- NOTE | 2021-07-15 12:19 | P.PN ---
Subjective Progress Note Date: 07/15/21 Principal diagnosis: chest pain and angina, hypertension, chronic cough, chronic back pain, Chief Complaint: Chest pain 75 years old male with past medical history of hypertension, hyperlipidemia, gout, anxiety, history of compression fractures in the back status post kyphoplasty comes in with worsening shortness of breath for the past few months associated with chest pain for the past few weeks. Patient also complains of significant weakness and shortness of breath on exertion when he even does minimal distance. He complained about his chest pain to his and decided to get an appointment with cardiology. Cardiology office recommended going to the ER due to patient's symptoms. Patient also complains of cough that has been going on for the past few months but improved with the use of Pepcid. Patient denies any history of stress test. He does complain of significant proximal thigh pain and weakness. Vitals are reviewed patient temp of 98.2 pulse 63 respiratory rate of 18 blood pressure 140/76.labs are suggestive WBC 7 .4 hemoglobin 14.7 BUN 24 creatinine 1.15 glucose 116 2. 1 negative proBNP 116 AST ALT normal. EKG suggestive of sinus bradycardia and no ST or T-wave changes noted. Echocardiogram ordered troponin 3 ordered. Cardiology consult 07/15: Patient is doing very well today, no further chest pain or angina to be going for heart cath today or tomorrow morning if negative patient can be discharged if positive angioplasty and stent will be done and patient to The hospital tomorrow. ROS Constitutional: Denies chills, Denies fever, endorses lethargic, decreased appetite and increased weakness Eyes: denies decreased vision, denies diplopia, denies discharge, denies pain Ears: deny: decreased hearing Ears, nose, mouth and throat: Denies dental pain, Denies headache, Denies nasal discharge, Denies nose pain Cardiovascular: Endorses chest pressure endorses decreased exercise tolerance, Denies edema, Denies high blood pressure, Denies irregular heart beat, Denies palpitations, Denies paroxysmal nocturnal dyspnea, Denies rapid heart beat, endorses shortness of breath Respiratory: Denies congestion, endorses cough improved with Pepcid, Denies cough with sputum, endorses dyspnea, Denies home oxygen, Denies wheezing Gastrointestinal: Denies abdominal pain, Denies change in bowel habits, Denies coffee ground emesis, Denies early satiety, Denies excessive gas, Denies heartburn, Denies hematemesis, Denies hematochezia, Denies loss of appetite, Denies nausea, Denies vomiting Genitourinary: Denies dysuria, Denies flank pain, Denies kidney stones, Denies menorrhagia, Denies urgency, Denies urinary frequency Musculoskeletal: Denies gait dysfunction, endorses limitation of motion, Denies morning stiffness, Denies muscle cramps Integumentary: Denies rash, Denies wounds, Denies brittle nails, Denies change in hair/nails, Denies darkening of skin Neurological: Denies balance difficulties, Denies change in speech, Denies double vision, Denies gait dysfunction, Denies loss of vision, Denies motor d isturbance, Denies numbness, Denies paralysis, Denies paresthesias, Denies seizures Psychiatric: Denies anxiety, Denies depression Endocrine: Denies excessive sweating, Denies excessive thirst, Denies high blood sugars, Denies palpitations Hematologic/Lymphatic: Denies easy bruising, Denies lymphadenopathy Physical exam - Constitutional General appearance: cooperative, no acute distress, obese - EENT Eyes: anicteric sclerae, PERRLA, normal appearance ENT: hearing grossly normal - Neck Neck: no lymphadenopathy, normal ROM, no other, no rigidity, no stridor, no thy romegaly - Respiratory Respiratory: bilateral: CTA, negative: diminished, dullness, rales, rhonchi - Cardiovascular Rhythm: regular Heart sounds: normal: S1, S2 Abnormal Heart Sounds: no systolic murmur, no diastolic murmur, no rub, no S3 Gallop, no S4 Gallop, no click, no other - Gastrointestinal General gastrointestinal: normal bowel sounds, soft nontender - Integumentary Integumentary: no rash - Neurologic Neurologic: CNII-XII intact - Musculoskeletal Musculoskeletal: gait normal, strength equal bilaterally - Psychiatric Psychiatric: A&O x's 3, appropriate affect Assessment and plan #1 acute substernal chest pain suggestive of cardiac etiology. Echocardiogram showed well preserved ejection fraction, patient is going for heart cath today beside the result of the side and further management. #2 hypertension continue bisoprolol hydrochlorothiazide by mouth dailyin the blood pressure is well controlled. #3 history of anxiety continue Xanax 0.25 by mouth 3 times a day continue Zoloft 50 mg daily #4 history of gout continue allopurinol 300 mg daily #5 chronic cough secondary to GERD improved with Pepcid 40 once a day #6 history of compression fractures status post kyphoplasty #7 proximal thigh pain and weakness Patient need outpatient workup including a repeat MRI to rule out degenerative disc disease versus compression disc. Would benefit from physical therapy as outpatient. Patient does continue Crestor 2 months ago due to increased pain in his thighs #8 hyperlipidemia currently off Crestor due to worsening type painmostly myalgia which patient should start back on statin as soon as clear he might need an benefit from lower dose specially with his risk of atherosclerotic heart disease. #9 DVT prophylaxis with heparin drip #10 GI prophylaxis with Pepcid 40 before meals supper Objective - Vital Signs Vital signs: Vital Signs Temp 98.4 F 07/15/21 07:45 Pulse 59 L 07/15/21 07:45 Resp 16 07/15/21 07:45 BP 154/84 07/15/21 07:45 Pulse Ox 96 07/15/21 07:45 Intake & Output 07/14/21 07/15/21 07/15/21 18:59 06:59 18:59 Intake Total 478 Balance 478 Intake: Intake, IV Titration 178 Amount Heparin Sod,Pork in 0.45% 178 NaCl 25,000 unit In 0.45 % NaCl 1 250ml.bag @ 9. 462 UNITS/KG/HR 10 mls/hr IV .Q24H [facility] Rx#: [id number] Oral 300 Other: Voiding Method Toilet # Voids 2 2 # Bowel Movements 0 - Labs CBC & Chem 7: 07/13/21 14:08 07/13/21 14:08 Labs: Abnormal Lab Results - Last 24 Hours (Table) 07/14/21 07/15/21 Range/Units 07:06 06:39 APTT 50.6 H (22.0-30.0) sec Cholesterol 245 H (0-200) mg/dL LDL Cholesterol, Calc 170.2 H (0.0-131.0) mg/dL
[2021-07-15] MEDS ORDERED: VERAPAMIL 2.5 MG/ML 2 ML AMP ONE (12:35)
[2021-07-15] MEDS ORDERED: HEPARIN SODIUM 1,000 UN/ML (10ML VL) ONE (12:36)
[2021-07-15] MEDS ORDERED: fentaNYL (PF) 50 MCG/ML 2 ML AMP ONE (12:36)
[2021-07-15] MEDS ORDERED: LIDOCAINE 1% INJ 10MG/ML (20 ML MDV) ONE (12:36)
[2021-07-15] MEDS ORDERED: IV FLUID CONTINUATION 700 ML IV ONE (12:42)
[2021-07-15] MEDS ORDERED: MIDAZOLAM 2 MG/2 ML VIAL IV ONE (12:54)
[2021-07-15] MEDS ORDERED: fentaNYL (PF) 50 MCG/ML 2 ML AMP IV ONE (12:54)
[2021-07-15] MEDS ORDERED: LIDOCAINE 1% INJ 10MG/ML (20 ML MDV) SQ ONE (12:55)
[2021-07-15] MEDS ORDERED: VERAPAMIL SYRINGE (5 MG/10 ML) INTRAARTER ONE (12:58)
[2021-07-15] MEDS ORDERED: HEPARIN SODIUM 1,000 UN/ML (10ML VL) IV ONE (13:03)
[2021-07-15] MEDS ORDERED: IOPAMIDOL-370 125ML BTL INJ ONE (13:08)
[2021-07-15] MEDS ORDERED: RX INFO: IV CONTRAST WAS GIVEN 1 EACH MISC MISCELLANE PRN (13:17)
--- NOTE | 2021-07-15 13:17 | P.CARDCATH ---
Description of Procedure: PROCEDURES PERFORMED: Left heart catheterization, bilateral coronary angiography INDICATION: Unstable angina HISTORY: Patient is a pleasant 75-year-old male who has been having new onset of shortness breath, chest pressure, mild diaphoresis over the last 3-4 days concerning for unstable angina. He states he has been unable to ambulate across the store without becoming short of breath and therefore presented to emergency department. Due to concern of unstable angina heart catheterization was recommended. CONSENT:I have discussed the risks, benefits and alternative therapies for the above-mentioned procedure and for both sedation/analgesia as well as necessary blood product administration, if indicated, as they pertain to this patient. The patient has indicated understanding and acceptance of the risks and procedures discussed. PROCEDURE: After the risks, benefits and alternatives of the above mentioned procedure explained in detail with the patient, informed consent was obtained. Patient was taken to the catheterization lab and prepped and draped in usual fashion. 1% lidocaine was used to anesthetize the right radial artery. A 6- Sudanese sheath was placed in the right radial artery using modified Seldinger technique. Left coronary angiography was performed with a 5-Sudanese JL 3.5 catheter and right coronary angiography was performed with a 5-Sudanese JR5 catheter in various views. A 5-Sudanese FR5 catheter was inserted into the left ventricle and pressure measurements were obtained. The right radial sheath was removed and a TR band was placed with hemostasis achieved. The patient tolerated the procedure well. Patient was transported back to the post catheterization holding area in stable condition. Conscious Sedation: Patient was monitored under the direct supervision of vision of myself for conscious sedation using Versed and fentanyl for a total duration of 11 minutes HEMODYNAMICS: Aorta: 117/59 LV: 121/1 LVEDP 6 SELECTIVE CORONARY ARTERIOGRAPHY: LEFT MAIN: The left main is a large caliber vessel which bifurcates into the LAD and circumflex. There is no significant stenosis. LEFT ANTERIOR DESCENDING CORONARY ARTERY: LAD is a large caliber vessel which wraps around to the apex. There is proximal LAD 20-30% stenosis and otherwise only mild luminal irregularities. LEFT CIRCUMFLEX CORONARY ARTERY: Left circumflex is a moderate caliber vessel with mild 10% stenosis. RIGHT CORONARY ARTERY: The right coronary artery is a moderate caliber vessel which gives off a PDA and PLV branch and is the dominant vessel. There is proximal 20% RCA stenosis and otherwise normal. FINAL IMPRESSION: 1. Mild CAD as described above including 20-30% proximal LAD stenosis, 20% proximal RCA stenosis 2. Low normal left sided filling pressures PLAN: 1. Aggressive risk factor modification per most recent ACC/AHA guidelines. 2. OK for discharge. Follow-up in the office in 1-2 weeks.
[2021-07-15 16:23] VITALS: BP 119/70; PULSE 58
--- NOTE | 2021-07-18 16:15 | P.DS ---
Providers Date of admission: 07/13/21 15:30 Expected date of discharge: 07/15/21 Attending physician: Mis Capps MD Consults: 07/13/21 15:27 Consult Physician Urgent Consulting Provider: Ruben Lucas Consult Reason/Comments: Chest pain Do you want consulting provider notified?: Yes Primary care physician: Kelli Mak [facility] Course: 75 years old male with past medical history of hypertension, hyperlipidemia, gout, anxiety, history of compression fractures in the back status post kyphoplasty comes in with worsening shortness of breath for the past few months associated with chest pain for the past few weeks. Patient also complains of significant weakness and shortness of breath on exertion when he even does minimal distance. He complained about his chest pain to his and decided to get an appointment with cardiology. Cardiology office recommended going to the ER due to patient's symptoms. Patient also complains of cough that has been going on for the past few months but improved with the use of Pepcid. Patient denies any history of stress test. He does complain of significant proximal thigh pain and weakness. Vitals are reviewed patient temp of 98.2 pulse 63 respiratory rate of 18 blood pressure 140/76.labs are suggestive WBC 7.4 hemoglobin 14.7 BUN 24 creatinine 1.15 glucose 116 2. 1 negative proBNP 116 AST ALT normal. EKG suggestive of sinus bradycardia and no ST or T-wave changes noted. Echocardiogram ordered troponin 3 ordered. Cardiology consult 07/15: Patient is doing very well today, no further chest pain or angina to be going for heart cath today with Dr. Garcia that revealed mild coronary artery disease of 20-30% in the proximal LAD, 20% in the RCA. Plan is for aggressive risk factor modification and follow-up in the office in one to 2 weeks. Patient was cleared for discharge and patient was discharged home in stable condition. Assessment and plan #1 acute substernal chest pain #2 hypertension #3 history of generalized anxiety disorder #4 history of gout #5 chronic cough secondary to GERD #6 history of compression fractures status post kyphoplasty #7 proximal thigh pain and weakness Patient need outpatient workup #8 hyperlipidemia Impression and plan of care have been directed as dictated by the signing physician. Shayla Luis nurse practitioner acting as scribe for signing physician. Patient Condition at Discharge: Good Plan - Discharge Summary Discharge Rx Participant: No New Discharge Prescriptions: Continue Bisoprolol-Hctz 10-6.25 mg [Ziac 10-6.25 MG] 1 tab PO DAILY allopurinoL [Zyloprim] 300 mg PO DAILY #0 Sertraline [Zoloft] 50 mg PO DAILY Famotidine [Pepcid] 40 mg PO AC-SUPPER ALPRAZolam [Xanax] 0.25 mg PO TID PRN PRN Reason: Anxiety Discharge Medication List Bisoprolol-Hctz 10-6.25 mg [Ziac 10-6.25 MG] 1 tab PO DAILY 01/01/16 [History] allopurinoL [Zyloprim] 300 mg PO DAILY #0 01/08/16 [Rx] ALPRAZolam [Xanax] 0.25 mg PO TID PRN 07/13/21 [History] Famotidine [Pepcid] 40 mg PO AC-SUPPER 07/13/21 [History] Sertraline [Zoloft] 50 mg PO DAILY 07/13/21 [History] Follow up Appointment(s)/Referral(s): Dylan Garcia DO [STAFF PHYSICIAN] - 1 Week (Call office in am and schedukle a follow up appointment for a Site Check with Dr. Garcia within one week) Kelli Eaton DO [Primary Care Provider] - 1-2 days Patient Instructions/Handouts: After Radial Heart Catheterization (GEN) Discharge Disposition: HOME SELF-CARE
== END 2021-07-15 18:06 | disposition home or self-care (01) ==
LOC: EC 13:30 → 6NMEDSUR 15:30
PROVIDERS: ADMIT Internal Medicine; ATTEND Internal Medicine
DX: R07.2 Precordial pain (principal); I10 Essential (primary) hypertension; F41.1 Generalized anxiety disorder; M10.9 Gout, unspecified; K21.9 Gastro-esophageal reflux disease without esophagitis; M79.659 Pain in unspecified thigh; R53.1 Weakness; E78.5 Hyperlipidemia, unspecified; R61 Generalized hyperhidrosis; R06.09 Other forms of dyspnea; R00.1 Bradycardia, unspecified; R53.83 Other fatigue; M79.602 Pain in left arm; R50.9 Fever, unspecified; I25.110 Atherosclerotic heart disease of native coronary artery with unstable angina pectoris; G89.29 Other chronic pain; M54.9 Dorsalgia, unspecified; F32.9 Major depressive disorder, single episode, unspecified; I35.1 Nonrheumatic aortic (valve) insufficiency; T46.6X5A Adverse effect of antihyperlipidemic and antiarteriosclerotic drugs, initial encounter; E66.9 Obesity, unspecified; Z68.33 Body mass index [BMI] 33.0-33.9, adult; Z20.822 Contact with and (suspected) exposure to COVID-19; Z79.899 Other long term (current) drug therapy; Z77.22 Contact with and (suspected) exposure to environmental tobacco smoke (acute) (chronic); Z66 Do not resuscitate; Z96.651 Presence of right artificial knee joint; Z90.79 Acquired absence of other genital organ(s); Z90.89 Acquired absence of other organs; Z88.2 Allergy status to sulfonamides; Z88.6 Allergy status to analgesic agent; Z88.8 Allergy status to other drugs, medicaments and biological substances; Z87.01 Personal history of pneumonia (recurrent); Z85.46 Personal history of malignant neoplasm of prostate; Z82.49 Family history of ischemic heart disease and other diseases of the circulatory system; Z82.3 Family history of stroke; Z80.0 Family history of malignant neoplasm of digestive organs; Z83.3 Family history of diabetes mellitus; Z83.79 Family history of other diseases of the digestive system
CPT/HCPCS: 96376 ×2; 96366 ×3; 96365; 99285; 36415; 93005; 93306; 93458; 85379; 83880; 80061; 80053; 82550; 83690; 83735; 84484 ×2; 85025; 85610; 85730 ×3; 87635; 71046; G0378 ×3; C1894; J2250; J2001; J3010; J1644 ×5; Q9967

== ENCOUNTER → 2021-12-19 | Outpatient (CLI) | payer MEDICARE, OTHER ==
[2021-12-19 14:11] LABS: Basophils # (A) 0.03 X 10*3/uL (0.00-0.10); Basophils % (A) 0.5 %; Eosinophils # (A) 0.16 X 10*3/uL (0.04-0.35); Eosinophils % (A) 2.5 %; HCT 38.9 % (39.6-50.0); HGB 12.4 g/dL (13.0-17.0); Immature Grans, Automated 0.3 %; Lymphocytes # (A) 1.63 X 10*3/uL (0.90-5.00); Lymphocytes % (A) 25.3 %; MCH 32.4 pg (27.0-32.0); MCHC 31.9 g/dL (32.0-37.0); MCV 101.6 fL (80.0-97.0); Mean Platelet Volume 10.6 fL (9.5-12.2); Monocytes # (A) 0.58 X 10*3/uL (0.20-1.00); NRBC Per 100 WBC 0 /100 WBCS (0.0-0.0); Neutrophils # (A) 4.01 X 10*3/uL (1.80-7.70); Neutrophils % (A) 62.4 %; Platelet Count 212 X 10*3/uL (140-440); RBC 3.83 X 10*6/uL (4.40-5.60); RDW 13.9 % (11.5-14.5); WBC 6.43 X 10*3/uL (4.50-10.00)
[2021-12-19 14:41] LABS: ALT 15 U/L (10-49); AST 20 U/L (14-35); African American GFR (CKD) 68.6 (60.0-200.0); Albumin/Globulin Ratio 1.43 (1.60-3.17); Alkaline Phosphatase 73 U/L (41-126); BUN/Creat Ratio 16.58 Ratio (12.00-20.00); Blood Urea Nitrogen 19.9 mg/dL (9.0-27.0); Chloride 104 mmol/L (96-109); Chol/HDL Ratio 3.38 Ratio; Globulin 2.8 g/dL (1.6-3.3); Glucose 112 mg/dL (70-110); LDL Cholesterol,Calculated 105.8 mg/dL (0.0-131.0); Magnesium 2.1 mg/dL (1.5-2.4); Non-African American GFR(CKD) 59.2 (60.0-200.0); Potassium 4.3 mmol/L (3.5-5.5); Sodium 141 mmol/L (135-145); Total Protein 6.8 g/dL (6.2-8.2); Uric Acid 5.4 mg/dL (3.7-8.7)
== END | disposition home or self-care (01) ==
LOC: LABWHC1 08:05
PROVIDERS: ATTEND Family Medicine
DX: Z12.5 Encounter for screening for malignant neoplasm of prostate (principal); I10 Essential (primary) hypertension; K21.9 Gastro-esophageal reflux disease without esophagitis; M10.072 Idiopathic gout, left ankle and foot; M10.071 Idiopathic gout, right ankle and foot
CPT/HCPCS: 36415; 80053; 80061; 82607; 83735; 84153; 84550; 85025

== ENCOUNTER → 2022-04-17 | Outpatient (CLI) | payer MEDICARE, OTHER ==
[2022-04-17 14:44] LABS: ALT 17 U/L (10-49); AST 14 U/L (14-35)
== END | disposition home or self-care (01) ==
LOC: LABWHC1 08:23
PROVIDERS: ATTEND Internal Medicine
DX: E78.2 Mixed hyperlipidemia (principal)
CPT/HCPCS: 36415; 80061; 84450; 84460

== ENCOUNTER 2022-04-27 11:44 | Emergency (ER) | payer MEDICARE, OTHER ==
[2022-04-27 11:53] VITALS: BP 132/59; PULSE 60; RESP 18; TEMP 97.6
--- NOTE | 2022-04-27 12:34 | ED ---
General Adult HPI - General Chief complaint: Fall Stated complaint: fall 6-7 feet Time Seen by Provider: 04/27/22 12:07 Source: patient, RN notes reviewed, old records reviewed Mode of arrival: ambulatory Limitations: no limitations - History of Present Illness Initial comments: 76 yo male presenting for evaluation of right-sided rib pain after a fall from a ladder. Patient states he fell between 6 and 8 feet. The ladder slipped out from under him. He fell onto the edge of a deck. There was no head or neck trauma. No loss conscious. No anticoagulation. Additionally he did injure his left ankle and right elbow but states she's her only hurting very little. - Related Data Home Medications Medication Instructions Recorded Confirmed Bisoprolol-Hctz 10-6.25 mg [Ziac 1 tab PO DAILY 01/01/16 07/13/21 10-6.25 MG] ALPRAZolam [Xanax] 0.25 mg PO TID PRN 07/13/21 07/13/21 Famotidine [Pepcid] 40 mg PO AC-SUPPER 07/13/21 07/13/21 Sertraline [Zoloft] 50 mg PO DAILY 07/13/21 07/13/21 Previous Rx's Medication Instructions Recorded allopurinoL [Zyloprim] 300 mg PO DAILY #0 01/08/16 HYDROcodone/APAP 5-325MG [[place] 1 tab PO Q6HR PRN #12 tab 04/27/22 5-325] Ibuprofen [Motrin] 600 mg PO Q8HR PRN #24 tab 04/27/22 Allergies Allergy/AdvReac Type Severity Reaction Status Date / Time aspirin Allergy Swelling Verified 04/27/22 11:53 Sulfa (Sulfonamide Allergy Swelling Verified 04/27/22 11:53 Antibiotics) Svwoeyy-CWS-AwY Reductase AdvReac leg cramps Verified 04/27/22 11:53 Inhibitor [Nxbtvea-Yhx-Yrk Reductase Inhibitor] Review of Systems ROS Statement: Those systems with pertinent positive or pertinent negative responses have been documented in the HPI. ROS Other: All systems not noted in ROS Statement are negative. Past Medical History Past Medical History: Hyperlipidemia, Hypertension, Pneumonia, Prostate Disorder Additional Past Medical History / Comment(s): gout, prostate ca with sx 2007 History of Any Multi-Drug Resistant Organisms: None Reported Past Surgical History: Appendectomy, Orthopedic Surgery, Prostate Surgery Additional Past Surgical History / Comment(s): partial right knee replacement, broken jaw sx, prostate removal, compression fx in back with sx Past Anesthesia/Blood Transfusion Reactions: No Reported Reaction Past Psychological History: Anxiety, Depression Smoking Status: Never smoker Past Alcohol Use History: None Reported Past Drug Use History: None Reported - Past Family History Father Family Medical History: Congestive Heart Failure (CHF), Coronary Artery Disease (CAD), Hypertension Mother Family Medical History: Congestive Heart Failure (CHF) Brother(s) Family Medical History: Cancer Sister(s) Family Medical History: No Reported History Daughter(s) Family Medical History: Liver Disease General Exam Limitations: no limitations General appearance: alert, in no apparent distress Head exam: Present: atraumatic, normocephalic Eye exam: Present: normal appearance, PERRL ENT exam: Present: normal exam Neck exam: Present: normal inspection. Absent: tenderness, meningismus Respiratory exam: Present: normal lung sounds bilaterally, chest wall tenderness (Right lateral chest wall, no ecchymosis, no crepitus). Absent: respiratory distress Cardiovascular Exam: Present: regular rate, normal rhythm GI/Abdominal exam: Present: soft. Absent: distended, tenderness Extremities exam: Present: full ROM (Soft tissue swelling right elbow, no gross deformity) Back exam: Present: normal inspection. Absent: CVA tenderness (R), CVA tenderness (L), vertebral tenderness Neurological exam: Present: alert, oriented X3, CN II-XII intact. Absent: motor sensory deficit Psychiatric exam: Present: normal affect, normal mood Skin exam: Present: warm, dry, intact. Absent: cyanosis, diaphoretic Course Vital Signs 04/27/22 11:48 Temperature 97.6 F Pulse Rate 60 Respiratory 18 Rate Blood Pressure 132/59 O2 Sat by Pulse 96 Oximetry Medical Decision Making - Medical Decision Making 76-year-old male with fall off of a ladder with right sided lateral and posterio r chest pain. Patient had landed against the side of a deck. Following about 6-8 feet. No head or neck trauma. No anticoagulation. There was some minor injuries to the left ankle and right elbow. X-rays are performed of the ankle and the elbow and these are negative for acute injury, no displaced fracture or dislocation. X-rays of the chest and ribs reveal 6/7, eighth rib fractures minimally displaced, no pneumothorax. Patient is eager for discharge. His pain is manageable and does not require any antibiotics in the emergency department. Disposition Clinical Impression: Fall, Rib fractures Disposition: HOME SELF-CARE Condition: Fair Instructions (If sedation given, give patient instructions): Rib Fracture (ED), Fall Prevention (ED) Prescriptions: Ibuprofen [Motrin] 600 mg PO Q8HR PRN #24 tab PRN Reason: Pain HYDROcodone/APAP 5-325MG [[place] 5-325] 1 tab PO Q6HR PRN #12 tab PRN Reason: Pain Is patient prescribed a controlled substance at d/c from ED?: No Referrals: Kelli Eaton DO [Primary Care Provider] - 1-2 days Time of Disposition: 13:30
--- NOTE | 2022-04-27 13:24 | XR ---
EXAMINATION TYPE: XR ankle complete LT DATE OF EXAM: 04/27/2022 12:56 PM INDICATION: Patient age:Male; 76 years old; Reason for study: fall; COMPARISON: None TECHNIQUE: The left ankle is imaged in frontal lateral and oblique projections. FINDINGS: There is no evidence of acute osseous pathology. The joint spaces are well-preserved without evidenc e of subluxation or dislocation. Kager's fat pad is intact. Mild soft tissue swelling around the late ral ankle. No radiopaque foreign bodies are identified. Calcaneal plantar spurring is present. Atherosclerosis of the arterial vasculature. IMPRESSION: 1. No evidence of acute fracture. 2. Subcutaneous swelling around the lateral ankle likely secondary to underlying soft tissue injury.
--- NOTE | 2022-04-27 13:26 | XR ---
EXAMINATION TYPE: XR elbow complete RT DATE OF EXAM: 04/27/2022 12:56 PM INDICATION: Patient age:Male; 76 years old; Reason for study: fall; COMPARISON: None TECHNIQUE: The right elbow was examined in AP, lateral, and oblique projections. FINDINGS: No evidence of any acute osseous pathology, joint dislocation, or soft tissue swelling is n oted. No evidence of joint effusion is present. IMPRESSION: No evidence of acute fracture.
--- NOTE | 2022-04-27 13:29 | XR ---
EXAMINATION TYPE: XR ribs RT w pa chest xray DATE OF EXAM: 04/27/2022 12:56 PM INDICATION: Patient age:Male; 76 years old; Reason for study: fall; COMPARISON: Chest radiograph 07/13/2021. TECHNIQUE: Frontal lateral and oblique views of the right ribs. Frontal the chest. FINDINGS: There are acute fractures of right rib 6, 7 and 8 with mild displacement and an additional subtle fracture suggested involving right rib #9. No definitive other fractures are identified. Vert ebroplasty changes noted within the spine. The level disc degeneration changes throughout the spine. No focal consolidation, pneumothorax or pleural effusion is visualized. IMPRESSION RIBS: Multiple right-sided rib fractures.
[2022-04-27] MEDS ORDERED: IBUPROFEN 600 MG TAB PO STA (13:39)
[2022-04-27] MEDS ORDERED: HYDROcodone/APAP 5-325MG 1 EACH TAB PO STA (13:39)
== END 2022-04-27 14:40 | disposition home or self-care (01) ==
LOC: EC 11:44
DX: S22.39XA Fracture of one rib, unspecified side, initial encounter for closed fracture (principal); Z91.018 Allergy to other foods; E78.5 Hyperlipidemia, unspecified; I10 Essential (primary) hypertension; Z88.6 Allergy status to analgesic agent; Z88.2 Allergy status to sulfonamides; W11.XXXA Fall on and from ladder, initial encounter
CPT/HCPCS: 99284

== ENCOUNTER → 2022-06-03 | Outpatient (CLI) | payer MEDICARE, OTHER ==
[2022-06-03 14:37] LABS: Basophils # (A) 0.03 X 10*3/uL (0.00-0.10); Basophils % (A) 0.4 %; Eosinophils % (A) 2.8 %; HCT 40.5 % (39.6-50.0); HGB 13.2 g/dL (13.0-17.0); Immature Grans, Automated 0.3 %; Lymphocytes # (A) 1.93 X 10*3/uL (0.90-5.00); Lymphocytes % (A) 27.5 %; MCH 31.4 pg (27.0-32.0); MCHC 32.6 g/dL (32.0-37.0); MCV 96.4 fL (80.0-97.0); Mean Platelet Volume 10.5 fL (9.5-12.2); Monocytes # (A) 0.65 X 10*3/uL (0.20-1.00); Monocytes % (A) 9.3 %; NRBC Per 100 WBC 0 /100 WBCS (0.0-0.0); Neutrophils # (A) 4.19 X 10*3/uL (1.80-7.70); Neutrophils % (A) 59.7 %; Platelet Count 184 X 10*3/uL (140-440); RDW 13.5 % (11.5-14.5); WBC 7.02 X 10*3/uL (4.50-10.00)
[2022-06-03 14:55] LABS: African American GFR (CKD) 70.8 (60.0-200.0); Albumin 4.3 g/dL (3.8-4.9); Albumin/Globulin Ratio 1.5 (1.60-3.17); Anion Gap 10.7 mmol/L (10.00-18.00); BUN/Creat Ratio 13.68 Ratio (12.00-20.00); Calcium 9.8 mg/dL (8.7-10.3); Carbon Dioxide 27.8 mmol/L (20.0-27.5); Globulin 2.9 g/dL (1.6-3.3); Non-African American GFR(CKD) 61.1 (60.0-200.0); Potassium 5.3 mmol/L (3.5-5.5); Total Bilirubin 0.5 mg/dL (0.30-1.20); Total Protein 7.1 g/dL (6.2-8.2)
== END | disposition home or self-care (01) ==
LOC: LABWHC1 09:20
PROVIDERS: ATTEND Family Medicine
DX: I10 Essential (primary) hypertension (principal); K21.9 Gastro-esophageal reflux disease without esophagitis
CPT/HCPCS: 36415; 80053; 85025

== ENCOUNTER → 2022-11-06 | Outpatient (CLI) | payer MEDICARE, OTHER ==
[2022-11-06 15:03] LABS: Chol/HDL Ratio 4.04 Ratio; LDL Cholesterol,Calculated 112.5 mg/dL (0.0-131.0)
== END | disposition home or self-care (01) ==
LOC: LABWHC1 08:54
PROVIDERS: ATTEND Internal Medicine
DX: I10 Essential (primary) hypertension (principal); I25.10 Atherosclerotic heart disease of native coronary artery without angina pectoris
CPT/HCPCS: 36415; 80061

== ENCOUNTER → 2023-06-05 | Outpatient (CLI) | payer MEDICARE, OTHER ==
[2023-06-05 16:56] LABS: Basophils # (A) 0.06 X 10*3/uL (0.00-0.10); Basophils % (A) 0.7 %; Eosinophils # (A) 0.17 X 10*3/uL (0.04-0.35); Eosinophils % (A) 1.9 %; HCT 43.8 % (39.6-50.0); HGB 14.5 d/dL (13.0-17.0); Lymphocytes # (A) 2.27 X 10*3/uL (0.90-5.00); Lymphocytes % (A) 24.9 %; MCH 32.3 pg (27.0-32.0); MCHC 33.1 d/dL (32.0-37.0); MCV 97.6 FL (80.0-97.0); Monocytes # (A) 0.77 X 10*3/uL (0.20-1.00); Monocytes % (A) 8.5 %; NRBC Per 100 WBC 0 X 10*3/uL (0.00-0.01); Neutrophils # (A) 5.82 X 10*3/uL (1.80-7.70); Neutrophils % (A) 63.8 %; Platelet Count 229 X 10*3/uL (140-440); RBC 4.49 X 10*6/uL (4.40-5.60); RDW 13.3 % (11.5-14.5); WBC 9.11 X 10*3/uL (4.50-10.00)
[2023-06-05 20:10] LABS: BUN/Creat Ratio 11.85 Ratio (12.00-20.00); Blood Urea Nitrogen 15.4 mg/dL (9.0-27.0); Chloride 100 mmol/L (96-109); Chol/HDL Ratio 3.79 Ratio; Glucose 105 mg/dL (70-110); LDL Cholesterol,Calculated 115.1 mg/dL (0.0-131.0); Potassium 4.3 mmol/L (3.5-5.5); Sodium 138 mmol/L (135-145); Uric Acid 5.4 mg/dL (3.7-8.7)
[2023-06-05 20:11] LABS: ALT 40 U/L (10-49); AST 28 U/L (14-35); Albumin 4.3 d/dL (3.8-4.9); Albumin/Globulin Ratio 1.54 Ratio (1.60-3.17); Alkaline Phosphatase 109 U/L (41-126); Calcium 9.4 mg/dL (8.7-10.3); Carbon Dioxide 25.2 mmol/L (21.6-31.8); Globulin 2.8 d/dL (1.6-3.3); Total Bilirubin 0.8 mg/dL (0.3-1.2); Total Protein 7.1 d/dL (6.2-8.2)
== END | disposition home or self-care (01) ==
LOC: LABWHC1 13:04
PROVIDERS: ATTEND Family Medicine
DX: I10 Essential (primary) hypertension (principal); E78.2 Mixed hyperlipidemia; M10.072 Idiopathic gout, left ankle and foot
CPT/HCPCS: 36415; 80053; 80061; 84550; 85025

== ENCOUNTER → 2023-06-20 | Outpatient (CLI) | payer MEDICARE, OTHER ==
[2023-06-21 01:29] LABS: ALT 29 U/L (10-49); AST 26 U/L (14-35); Albumin/Globulin Ratio 1.54 Ratio (1.60-3.17); Alkaline Phosphatase 90 U/L (41-126); BUN/Creat Ratio 14.42 Ratio (12.00-20.00); Blood Urea Nitrogen 17.3 mg/dL (9.0-27.0); Calcium 9.3 mg/dL (8.7-10.3); Carbon Dioxide 27.3 mmol/L (21.6-31.8); Chloride 102 mmol/L (96-109); Globulin 2.6 d/dL (1.6-3.3); Glucose 93 mg/dL (70-110); Potassium 4.6 mmol/L (3.5-5.5); Sodium 138 mmol/L (135-145); Total Bilirubin 0.5 mg/dL (0.3-1.2); Total Protein 6.6 d/dL (6.2-8.2)
== END | disposition home or self-care (01) ==
LOC: LABWHC1 10:02
PROVIDERS: ATTEND Family Medicine
DX: I10 Essential (primary) hypertension (principal)
CPT/HCPCS: 36415; 80053

== ENCOUNTER → 2023-12-02 | Outpatient (CLI) | payer MEDICARE, OTHER ==
[2023-12-02 15:28] LABS: Basophils # (A) 0.03 X 10*3/uL (0.00-0.10); Basophils % (A) 0.4 %; Eosinophils # (A) 0.17 X 10*3/uL (0.04-0.35); Eosinophils % (A) 2.5 %; HCT 44.8 % (39.6-50.0); HGB 14.8 g/dL (13.0-17.0); Lymphocytes # (A) 2.01 X 10*3/uL (0.90-5.00); Lymphocytes % (A) 29.9 %; MCH 32.7 pg (27.0-32.0); MCV 98.9 FL (80.0-97.0); Mean Platelet Volume 10.4 FL (9.5-12.2); Monocytes # (A) 0.57 X 10*3/uL (0.20-1.00); Monocytes % (A) 8.5 %; NRBC Per 100 WBC 0 X 10*3/uL (0.00-0.01); Neutrophils # (A) 3.91 X 10*3/uL (1.80-7.70); Neutrophils % (A) 58.3 %; Platelet Count 211 X 10*3/uL (140-440); RBC 4.53 X 10*6/uL (4.40-5.60); RDW 13.3 % (11.5-14.5); WBC 6.72 X 10*3/uL (4.50-10.00)
[2023-12-02 16:08] LABS: ALT 48 U/L (10-49); AST 29 U/L (14-35); Albumin 4.1 g/dL (3.8-4.9); Albumin/Globulin Ratio 1.37 Ratio (1.60-3.17); Alkaline Phosphatase 95 U/L (41-126); BUN/Creat Ratio 14.86 Ratio (12.00-20.00); Blood Urea Nitrogen 20.8 mg/dL (9.0-27.0); Carbon Dioxide 22.6 mmol/L (21.6-31.8); Chloride 101 mmol/L (96-109); Chol/HDL Ratio 3.48 Ratio; Glucose 130 mg/dL (70-110); LDL Cholesterol,Calculated 116.3 mg/dL (0.0-131.0); Magnesium 1.9 mg/dL (1.5-2.4); Potassium 4.3 mmol/L (3.5-5.5); Sodium 139 mmol/L (135-145); Total Bilirubin 0.7 mg/dL (0.3-1.2); Total Protein 7.1 g/dL (6.2-8.2); Uric Acid 5.8 mg/dL (3.7-8.7)
[2023-12-02 16:20] LABS: Prostate Specific Antigen <0.01 ng/mL (0.000-6.500)
== END | disposition home or self-care (01) ==
LOC: LABWHC1 08:43
PROVIDERS: ATTEND Family Medicine
DX: Z12.5 Encounter for screening for malignant neoplasm of prostate (principal); Z13.1 Encounter for screening for diabetes mellitus; M10.071 Idiopathic gout, right ankle and foot; M10.072 Idiopathic gout, left ankle and foot; E78.5 Hyperlipidemia, unspecified; K21.9 Gastro-esophageal reflux disease without esophagitis
CPT/HCPCS: 36415; 80053; 80061; 82607; 83735; 84153; 84550; 85025

== ENCOUNTER → 2024-08-09 | Outpatient (CLI) | payer MEDICARE, OTHER ==
[2024-08-09 19:22] LABS: ALT 14 U/L (10-49); AST 18 U/L (14-35); Albumin 3.9 g/dL (3.8-4.9); Alkaline Phosphatase 127 U/L (41-126); Blood Urea Nitrogen 12.1 mg/dL (9.0-27.0); Carbon Dioxide 25.2 mmol/L (21.6-31.8); Chloride 104 mmol/L (96-109); Globulin 2.6 g/dL (1.6-3.3); Glucose 134 mg/dL (70-110); Potassium 4.1 mmol/L (3.5-5.5); Sodium 139 mmol/L (135-145); Total Bilirubin 0.5 mg/dL (0.3-1.2); Total Protein 6.5 g/dL (6.2-8.2)
[2024-08-09 20:49] LABS: Basophils # (A) 0.04 X 10*3/uL (0.00-0.10); Basophils % (A) 0.6 %; Eosinophils # (A) 0.16 X 10*3/uL (0.04-0.35); Eosinophils % (A) 2.4 %; HCT 38.9 % (39.6-50.0); HGB 12.5 g/dL (13.0-17.0); MCH 31.9 pg (27.0-32.0); MCHC 32.1 g/dL (32.0-37.0); MCV 99.2 FL (80.0-97.0); Mean Platelet Volume 10.7 FL (9.5-12.2); Monocytes # (A) 0.62 X 10*3/uL (0.20-1.00); Monocytes % (A) 9.3 %; NRBC Per 100 WBC 0 X 10*3/uL (0.00-0.01); Neutrophils # (A) 4.22 X 10*3/uL (1.80-7.70); Neutrophils % (A) 63.4 %; Platelet Count 236 X 10*3/uL (140-440); RBC 3.92 X 10*6/uL (4.40-5.60); RDW 13.7 % (11.5-14.5); WBC 6.66 X 10*3/uL (4.50-10.00)
== END | disposition home or self-care (01) ==
LOC: LABWHC1 12:45
PROVIDERS: ATTEND Family Medicine
CPT/HCPCS: 36415; 80053; 85025